=== PATIENT | female | born 1990 | race Caucasian/White ===

== ENCOUNTER 2017-01-07 09:00 | Inpatient (IN) | payer BC ==
[~2017-01-07] VITALS: Ht 170.2 cm; Wt 92.3 kg
[~2017-01-07 09:00] MED LIST: PRENATAL1 TA7 PO
[2017-02-27] VITALS (30 sets, daily range): BP systolic 92–148; BP diastolic 20–84; PULSE 54–123; TEMP 97.7–98.6
[2017-02-27] MEDS ORDERED: ZANTAC 150MG T150 MG PO (07:57)
[2017-02-27 08:00] LABS: MEAN CELL VOLUME 83 fl (80.0-100.0); MEAN CORPUSCULAR HGB CONC 32 g/dl (33.0-37.0); MEAN PLATELET VOLUME 11.2 fl (7.4-10.4); PLATELET COUNT 223 K/mm3 (130-400); RED BLOOD COUNT 4.22 M/mm3 (4.10-5.30); REDCELL DISTRIBUTION WIDTH-CV 14.5 % (11.5-14.5); WHITE BLOOD COUNT 7.1 K/mm3 (4.8-10.8)
[2017-02-27 08:02] LABS: ADD PATHOLOGY DIFF REVIEW NO; HEMATOCRIT 35.1 % (37.0-47.0); HEMOGLOBIN 11.1 g/dl (12.5-16.0); MEAN CORPUSCULAR HEMOGLOBIN 26 pg (27.0-31.0)
[2017-02-27 08:47] LABS: BAND 23 % (0-10); EOSINOPHIL 2 % (0-4); METAMYELOCYTE 2 % (0-0); MYELOCYTE 2 % (0-0); NEUTROPHILS 45 % (42.0-75.2); PLATELET ESTIMATE NORMAL (NORMAL); TOTAL CELLS COUNTED 100
[2017-02-28 06:30] VITALS: BP 131/82; PULSE 102; TEMP 98.1
[2017-02-28 07:03] LABS: HEMATOCRIT 33.3 % (37.0-47.0); HEMOGLOBIN 10.4 g/dl (12.5-16.0)
[2017-02-28] MEDS ORDERED: IBU600 MG PO (08:42)
[2017-02-28 14:45] VITALS: BP 120/76; PULSE 78; TEMP 98.1
== END 2017-02-28 14:45 | disposition home or self-care (01) | DRG 775 ==
LOC: EDSTATUS 02-24 07:48 → LDRO 02-24 09:00 → LDR 02-25 07:49 → OB 02-27 06:59 → LDR 02-27 12:48 → OB 02-27 15:45
PROVIDERS: Obstetrics & Gynecology
PROC: 10E0XZZ Delivery of Products of Conception, External Approach (ICD-10-PCS; principal; 2017-02-27)
PROC: 3E033VJ Introduction of Other Hormone into Peripheral Vein, Percutaneous Approach (ICD-10-PCS; 2017-02-27)
PROC: 0HQ9XZZ Repair Perineum Skin, External Approach (ICD-10-PCS; 2017-02-27)
DX: O48.0 Post-term pregnancy (principal); O70.0 First degree perineal laceration during delivery; Z3A.40 40 weeks gestation of pregnancy; Z37.0 Single live birth
CPT/HCPCS: J2590; J7120

== ENCOUNTER 2019-01-04 07:08 | Inpatient (IN) | payer BC ==
[~2019-01-04] VITALS: Ht 170.2 cm; Wt 95.9 kg
[2019-01-04] VITALS (27 sets, daily range): BP systolic 94–136; BP diastolic 51–82; PULSE 76–111; TEMP 97.6–98.4
[~2019-01-04 07:08] MED LIST changes: +IBU600 MG PO; +ZANTAC 150MG T150 MG PO
--- NOTE | 2019-01-04 07:15 | NUR ---
0715-Patient to floor for schedueld induction. Patient prepped, IV started in left wrist with labs obtained, fluids infusing per protocol. Patient on monitor for FHT's, Spouse present, consents signed, questions encouraged and answered. 0730- SVE completed, patient tolerated well. 0800- Pitocin started per protocol. 0830- Dr. David at patient bedside, dicuss plan of care. Questions encouraged and answered. SVE completed. AROM with clear fluids noted, patient tolerated well. WIll continue to monitor.
[2019-01-04 08:28] LABS: HEMOGLOBIN 11.3 g/dl (12.5-16.0); MEAN CELL VOLUME 84 fl (80.0-100.0); MEAN CORPUSCULAR HEMOGLOBIN 27 pg (27.0-31.0); MEAN CORPUSCULAR HGB CONC 32 g/dl (33.0-37.0); MEAN PLATELET VOLUME 10.9 fl (7.4-10.4); PLATELET COUNT 218 K/mm3 (130-400); RED BLOOD COUNT 4.23 M/mm3 (4.10-5.30); REDCELL DISTRIBUTION WIDTH-CV 14.1 % (11.5-14.5)
[2019-01-04 08:40] LABS: HEMATOCRIT 35.4 % (37.0-47.0)
[2019-01-04 09:10] LABS: BAND 6 % (0-10); LYMPHOCYTE 19 % (20.0-51.0); NEUTROPHILS 73 % (42.0-75.2); PLATELET ESTIMATE NORMAL (NORMAL)
--- NOTE | 2019-01-04 09:15 | NUR ---
Patient requests epidural at this time. Zen Bill RELATIONSHIP MANAGEMENT LEAD notified of patient request
--- NOTE | 2019-01-04 09:30 | NUR ---
Patient prepped for epidural placement. Zen Bill into room. Fluid bolus completed.
--- NOTE | 2019-01-04 12:53 | NUR ---
1245- Patient reporting increased pressure, patient noted with anterior lip. notified, room prepped for delivery, Nursery RN notified. 1250- at patient bedside and begins to push with patient with contractions 1253- of viable female infant, to mothes abdomen for drying and stimulation to care of nusery RN. cord clamped and cut by father of baby. remains care of nursery RN. 1258- Delivery of placenta, fundal massage performed as indicated. Pitocin started per protcol. 1300- Increased bleeding noted with fundal massage and free flow post. notified ordered 1 dose IM methergine 1301- IM methergine given in left lateral thigh. Patient toelrated well. Epidural stopped, fundal massage continued as indicated. WIll continue to monitor.n
[2019-01-04] MEDS ORDERED: MOTRIN 800800 MG/TAB PO (19:30)
[2019-01-04] MEDS ORDERED: PERCOCET 325 MG1 TA2 PO (19:31)
[2019-01-05 03:45] VITALS: BP 120/83; PULSE 92; TEMP 97.5
[2019-01-05 07:46] VITALS: BP 118/72; PULSE 76; TEMP 98.1
--- NOTE | 2019-01-05 09:22 | NUR ---
Initial visit; Mom thanked Energy Audit Advisor for Offering congratulations and God's blessings for the of their daughter. Energy Audit Advisor thanked them for choosing [facility].
== END 2019-01-05 14:09 | disposition home or self-care (01) | DRG 807 ==
LOC: LDR 07:08 → OB 15:40
PROVIDERS: ADMIT Obstetrics & Gynecology
PROC: 10E0XZZ Delivery of Products of Conception, External Approach (ICD-10-PCS; principal; 2019-01-04)
PROC: 10907ZC Drainage of Amniotic Fluid, Therapeutic from Products of Conception, Via Natural or Artificial Opening (ICD-10-PCS; 2019-01-04)
PROC: 3E033VJ Introduction of Other Hormone into Peripheral Vein, Percutaneous Approach (ICD-10-PCS; 2019-01-04)
DX: O36.5930 Maternal care for other known or suspected poor fetal growth, third trimester, not applicable or unspecified (principal); Z37.0 Single live birth; O99.613 Diseases of the digestive system complicating pregnancy, third trimester; K21.9 Gastro-esophageal reflux disease without esophagitis; Z3A.39 39 weeks gestation of pregnancy
CPT/HCPCS: J2210; J2590; J2795; J7120